=== PATIENT | female | born 2000 | race African-American/Black ===

== ENCOUNTER → 2022-09-15 | Outpatient (CLI) | payer MEDICAID ==
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
== END ==
LOC: RAD 07:17
PROVIDERS: ATTEND Pediatrics
DX: F07.81 Postconcussional syndrome (principal); R51.9 Headache, unspecified
CPT/HCPCS: 70551